=== PATIENT | male | born 1975 | race American Indian/Alaskan Native ===

== ENCOUNTER 2017-11-13 07:11 | Emergency (ER) | payer OTHER ==
[2017-11-13 07:27] VITALS: BP 130/81
--- NOTE | 2017-11-13 08:13 | XRay Report ---
RIGHT FINGERS, 3 VIEWS History: Crush injury, fourth digit pain. Findings: A transverse nondisplaced fracture is identified through the distal phalanx of the fourth digit. The remaining right fingers are intact. No erosive joint pathology. Mild soft tissue swelling of the distal fourth digit is noted. Impression: Fracture, distal phalanx, fourth digit.
--- NOTE | 2017-11-13 08:38 | Emergency Department Report ---
HPI - General Chief Complaint: Extremity Injury, Upper Time Seen by Provider: 11/13/17 08:29 - HPI HPI: He is a 42-year-old male presents to ED complaining of right finger pain times yesterday. Patient states he was working on a car and the transmission fell on his finger. Patient states this incident happened around 10-11 AM yesterday. Patient states throbbing, aching finger pain since yesterday. Patient states mild swelling of the fingertip. He denies loss of sensation and inability to move finger. ED Past Medical Hx - Past Medical History Hx Congestive Heart Failure: No Hx Diabetes: No Hx Asthma: No Hx COPD: No Additional medical history: Upper GI bleed - Surgical History Additional Surgical History: right hand surgery - Social History Smoking Status: Current Every Day Smoker - Medications Home Medications: Home Medications Medication Instructions Recorded Confirmed Last Taken Type Pantoprazole [Protonix TAB] 40 mg PO QDAY #30 tablet 03/31/14 02/29/16 Unknown Rx Ibuprofen [Motrin] 800 mg PO Q8H #30 tablet 11/30/14 02/29/16 Unknown Rx traMADol [Ultram 50 MG tab] 50 mg PO Q6HR PRN #20 tablet 11/30/14 02/29/16 Unknown Rx Pantoprazole [Protonix] 40 mg PO BID #60 tablet 03/01/16 Unknown Rx Sucralfate [Carafate] 1 gm PO ACHS #300 ml 03/01/16 Unknown Rx Cyclobenzaprine [Flexeril 10 MG 10 mg PO QHS PRN #20 tablet 11/13/17 Unknown Rx TAB] Ibuprofen [Motrin 800 MG tab] 800 mg PO TID #30 tablet 11/13/17 Unknown Rx ED Review of Systems ROS: Stated complaint: HAND PAIN Other details as noted in HPI Constitutional: denies: chills, fever Eyes: denies: eye pain, eye discharge, vision change ENT: denies: ear pain, throat pain Respiratory: denies: cough, shortness of breath, wheezing Cardiovascular: denies: chest pain, palpitations Endocrine: no symptoms reported Gastrointestinal: denies: abdominal pain, nausea, diarrhea Genitourinary: denies: urgency, dysuria Musculoskeletal: arthralgia. denies: back pain, joint swelling Skin: denies: rash, lesions Neurological: denies: headache, weakness, paresthesias Psychiatric: denies: anxiety, depression Hematological/Lymphatic: denies: easy bleeding, easy bruising Physical Exam - Physical Exam Vital Signs: Vital Signs 11/13/17 07:23 Temperature 97.9 F Pulse Rate 62 Respiratory 14 Rate Blood Pressure 130/81 O2 Sat by Pulse 98 Oximetry Physical Exam: GENERAL: Alert and oriented x3, no apparent distress, Normal Gait, atraumatic. LUNGS: Symetrical with respiration, No wheezing, no rales or crackles, CTAB. HEART: S1, S2 present, regular rate and rhythm without murmur, no rubs, no gallops. Non tender to palpation EXTREMITIES/MUSCULOSKELETAL: No cyanosis, clubbing, rash, lesions or edema. Full ROM bilaterally on hands and all other extremities. UE Pulses 2+ bilaterally. Right fourth digit soft tissue swelling at fingertip, mild ecchymosis, no broken skin, nail bed is intact. NEUROLOGIC: The patient is cooperative with no focal neurologic deficits. No loss of sensation, SKIN: Warm and dry, No lesions, No ulceration or induration present. ED Course Vital Signs 11/13/17 07:23 Temperature 97.9 F Pulse Rate 62 Respiratory 14 Rate Blood Pressure 130/81 O2 Sat by Pulse 98 Oximetry ED Medical Decision Making - Radiology Data Radiology results: report reviewed, image reviewed GHT FINGERS, 3 VIEWS History: Crush injury, fourth digit pain. Findings: A transverse nondisplaced fracture is identified through the distal phalanx of the fourth digit. The remaining right fingers are intact. No erosive joint pathology. Mild soft tissue swelling of the distal fourth digit is noted. Impression: Fracture, distal phalanx, fourth digit. Transcribed By: TTR Dictated By: JIE SCALES JR, MD Electronically Authenticated By: JIE SCALES JR, MD Signed Date/Time: 11/13/17 0805 - Medical Decision Making 42-year-old male presents with right fourth digit distal phalanx nondisplaced fracture ED course: Patient received pain medication whilein ED. Finger x-ray shows fracture as reported above I discussed results with the patient. I discussed with the patient to follow up with orthopedic doctor has referred Finger was put in a splint and patient was sent home on pain medication and referrals. Vital signs are normal patient is in no acute distress Discussed with patient follow-up with primary care physician. Discussed the patient and take medications as prescribed. Patient has no neurological deficit. Patient is alert and oriented 3 and understands all instructions given. Discussed drowsiness effect of Flexeril makes her drowsy and not to operate machinery while taking flexeril Critical care attestation.: If time is entered above; I have spent that time in minutes in the direct care of this critically ill patient, excluding procedure time. ED Disposition Clinical Impression: Fracture, finger, distal phalanx Qualifiers: Encounter type: initial encounter Finger: index finger Fracture type: closed Fracture alignment: nondisplaced Laterality: right Qualified Code(s): S62.660A - Nondisplaced fracture of distal phalanx of right index finger, initial encounter for closed fracture Disposition: TO HOME OR SELFCARE Is pt being admited?: No Does the pt Need Aspirin: No Condition: Stable Instructions: Finger Fracture (ED), Arthralgia (ED) Additional Instructions: Make sure to follow up with the primary care physician as discussed. Follow-up with orthopedics has referred Take all your medications as you've been prescribed. If you have any worsening symptoms or develop new symptoms please return to ED immediately. Prescriptions: Cyclobenzaprine [Flexeril 10 MG TAB] 10 mg PO QHS PRN #20 tablet PRN Reason: Muscle Spasm Ibuprofen [Motrin 800 MG tab] 800 mg PO TID #30 tablet Referrals: PRIMARY CARE, [Primary Care Provider] - 3-5 Days NARA BOYD MD [Referring] - 3-5 Days [facility] [Outside] - 3-5 Days [facility] [Outside] - 3-5 Days SANDRA CAMPOS MD [Staff Physician] - 3-5 Days Forms: Work/School Release Form(ED), Accompanied Note Time of Disposition: 09:12
[2017-11-13] MEDS ORDERED: FLEXERIL PO ONE (08:51)
[2017-11-13] MEDS ORDERED: MOTRIN PO ONE (08:51)
== END 2017-11-13 09:34 | disposition home or self-care (01) ==
LOC: ED 07:11
DX: S62.660A Nondisplaced fracture of distal phalanx of right index finger, initial encounter for closed fracture (principal); F17.200 Nicotine dependence, unspecified, uncomplicated; W20.8XXA Other cause of strike by thrown, projected or falling object, initial encounter; Y93.89 Activity, other specified; Y92.89 Other specified places as the place of occurrence of the external cause; Y99.8 Other external cause status